=== PATIENT | female | born 1965 | race Caucasian/White ===

== ENCOUNTER 2018-11-10 21:57 | Emergency (ER) | payer OTHER ==
--- NOTE | 2018-11-10 22:09 | EDPHY ---
H & P Time Seen by Provider: 11/10/18 22:08 HPI/ROS: Chief complaint. Nausea and vomiting and diarrhea HPI. Patient is a 52-year-old female that developed nausea vomiting and diarrhea today. Her daughter had similar symptoms yesterday. She has crampy and stab be diffuse abdominal pain. She has chills and achiness. She has runny nose and cough is concerned about the flu. No radiation of discomfort to her back. Decreased urination. Unable to keep fluids down. No fever. Otherwise no bad food or recent travel. ROS 10 systems were reviewed and negative with the exception of the elements mentioned in the history of present illness (Jorge Sandy) Past Medical/Surgical History: Hypertension (Jorge Sandy) Social History: Single, nonsmoker, no alcohol (Jorge Sandy) Physical Exam: General Appearance: Alert female moderate distress signs are stable Eyes: Pupils equal and round no pallor or injection. ENT, no pharyngeal injection. Mucous membranes are dry Respiratory: There are no retractions, lungs are clear to auscultation. Cardiovascular: Regular rate and rhythm. Gastrointestinal: Abdomen is soft diffusely tender with slight increased discomfort in the epigastrium. No radiation of that pain to the back. No masses. Normal bowel sounds Neurological: Awake and alert, sensory and motor exams grossly normal. Skin: Warm and dry, no rashes. Musculoskeletal: Neck is supple nontender. Extremities symmetrical, full range of motion. Psychiatric: Patient is oriented X 3, there is no agitation. (Jorge Sandy) Constitutional: Initial Vital Signs Temperature (C) 36.9 C 11/10/18 22:08 Heart Rate 73 11/10/18 22:08 Respiratory Rate 18 11/10/18 22:08 Blood Pressure 127/81 H 11/10/18 22:08 O2 Sat (%) 91 L 11/10/18 22:08 O2 Delivery Mode Room Air Allergies/Adverse Reactions: NARCOTICS Allergy (Intermediate, Uncoded 11/16/13 20:08) MIGRAINE Home Medications: Medication Instructions Recorded Lisinopril [Zestril] 11/16/13 Sertraline HCl [Zoloft] 11/16/13 Medical Decision Making Procedures: IV normal saline with initial target of 2 L. Zofran for nausea (Jorge Sandy) ED Course/Re-evaluation: 11:00 p.m. patient signed over to me by Dr. Sandy at the end of his shift. Reviewed history of present illness, physical findings, treatment and workup plan. Patient would likely viral gastroenteritis and 15-year-old daughter ill with similar. No acute abdominal findings. Hemodynamically stable. 11:37 p.m. re-evaluated patient and she states she is feeling much better. Trying ice chips. IV fluids almost complete. Discussed continued small frequent sips of fluids and advance diet slowly. Return precautions reviewed in detail. (Park Hays) Differential Diagnosis: Differential diagnosis includes but is not limited to gastroenteritis, pancreatitis, bowel obstruction, C difficile colitis. After evaluation in the emergency department patient with likely gastroenteritis. No high risk factors of fever, peritonitis, abnormal vital signs, recent antibiotics, foreign travel. Patient has 15-year-old daughter ill with similar symptoms recently. Discussed continued small frequent sips of fluids at home. Also talked about handwashing to prevent illness spreading throughout the household. Reviewed return precautions. Stable for discharge. (Park Hays) Care Turn Over: care to Dr. Hays at 2300 (Jorge Sandy) - Data Points Laboratory Results: 11/10/18 23:03 POC Sodium 144 mEq/L mEq/L (135-145) POC Potassium 3.8 mEq/L mEq/L (3.3-5.0) POC Chloride 104.0 mEq/L mEq/L (97-110) POC Total CO2 25 mEq/L mEq/L (22-31) POC BUN 12 mg/dL mg/dL (7-23) POC Creatinine 1.0 mg/dL mg/dL (0.6-1.0) POC Glucose 154 mg/dL H mg/dL (70-100) POC Calcium 9.5 mg/dL mg/dL (8.5-10.4) Medications Given: Discontinued Medications Sodium Chloride (Ns) 1,000 mls @ 0 mls/hr IV EDNOW ONE; Wide Open PRN Reason: Protocol Stop: 11/10/18 22:29 Last Admin: 11/10/18 22:54 Dose: 1,000 mls Sodium Chloride (Ns) 1,000 mls @ 0 mls/hr IV EDNOW ONE; Wide Open PRN Reason: Protocol Stop: 11/10/18 22:29 Last Admin: 02/10/19 22:53 Dose: 1,000 mls Ondansetron HCl (Zofran) 4 mg IVP EDNOW ONE Stop: 11/10/18 22:29 Last Admin: 11/10/18 23:04 Dose: 4 mg Point of Care Test Results: CBC CBC Collection Date 11/10/18 CBC Collection Time 22:50 WBC 11.76 RBC 5.24 HGB 15.4 HCT 46.7 PLT 288 Neut # 10.21 Neut 86.8 LYMPH # 0.52 LYMPH 4.4 MCV 89.1 Chemistry 11/10/18 23:03 POC Sodium 144 mEq/L mEq/L (135-145) POC Potassium 3.8 mEq/L mEq/L (3.3-5.0) POC Chloride 104.0 mEq/L mEq/L (97-110) POC Total CO2 25 mEq/L mEq/L (22-31) POC BUN 12 mg/dL mg/dL (7-23) POC Creatinine 1.0 mg/dL mg/dL (0.6-1.0) POC Glucose 154 mg/dL H mg/dL (70-100) POC Calcium 9.5 mg/dL mg/dL (8.5-10.4) Influenza PCR Flu Nasal Swab Collection Date 11/10/18 Flu Nasal Swab Collection Time 22:24 Influenza A Result Not Detected Influenza B Result Not Detected Departure - Departure Clinical Impression: Acute gastroenteritis Condition: Fair Instructions: Gastroenteritis (ED) Additional Instructions: Small frequent sips of liquids such as Gatorade mixed half and half with water. Advance diet slowly with bland foods such as bananas, rice, applesauce, toast. Avoid dairy for several days. Expect to feel weak and tired tomorrow especially. Return to the emergency department if you develop more severe abdominal pain, fever, inability to take oral fluids or other concerning new symptoms.
[2018-11-10] MEDS ORDERED: ONDANSETRON 4 MG/2 ML VIAL IVP ONE (22:28)
[2018-11-10] MEDS ORDERED: NS 1,000 ML IV ONE ×2 (22:28)
[2018-11-10] MEDS ORDERED: ONDANSETRON 4MG PREPACK#2 BTL TAKEHOME ONE (23:46)
[2018-11-11 00:06] VITALS: BP 133/88
== END 2018-11-11 00:23 | disposition home or self-care (01) ==
LOC: CED 21:57
DX: K52.9 Noninfective gastroenteritis and colitis, unspecified (principal); E86.9 Volume depletion, unspecified
CPT/HCPCS: 80048-ER; 96361-ER; 96374-ER; 99284-ER; J2405